=== PATIENT | female | born 1975 | race Caucasian/White ===

== ENCOUNTER 2023-01-17 13:37 | Emergency (ER) | payer BC, SELFPAY ==
[2023-01-17] VITALS (24 sets, daily range): BP systolic 135–159; BP diastolic 70–84; PULSE 48–66; RESP 12–22; TEMP 36.4; O2SAT 97–100; BMI 45.0
--- NOTE | 2023-01-17 13:53 | ECG_ITS ---
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
--- NOTE | 2023-01-17 13:53 | XR_ITS ---
[address] [address] Patient Name: JEREMÍAS LIM MRN: [id number] date: 1975 Sex: F Assigned Patient Location: ER Current Patient Location: ED.MAIN Accession/Order Number: [id number] Exam Date: 01/17/2023 14:38 Report Date: 01/17/2023 15:25 At the request of: KEYSHA JOHNSON Procedure: XR chest 1V EXAM: XR chest 1V INDICATION: chest pain. COMPARISON: None. TECHNIQUE: Single frontal view of the chest FINDINGS: Enlarged cardiac silhouette. No acute infiltrative process. No pleural effusion or pneumothorax. No acute osseous abnormality. XR/XR chest 1V IMPRESSION: 1. No acute cardiopulmonary process. 2. Cardiomegaly. Electronically authenticated by: KULDEEP DEVINE Date: 01/17/2023 15:25
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
[2023-01-17 14:13] LABS: Basophils Absolute Auto 0.1 10^3/uL (0.0-0.1); Basophils Percent Auto 0.7 % (0.2-2.0); Eosinophils Absolute Auto 0.3 10^3/uL (0.0-0.7); Eosinophils Percent Auto 3.3 % (0.9-7.0); Hematocrit 35.4 % (36.0-48.0); Hemoglobin 11.2 g/dL (12.0-16.0); Immature Granulocytes Abs Auto 0.03 10^3/uL (0.00-0.03); Immature Granulocytes Pct Auto 0.4 % (0.0-0.5); Lymphocytes Absolute Auto 2.3 10^3/uL (1.2-3.8); Lymphocytes Percent Auto 28.4 % (20.5-60.0); Mean Corpuscular HGB Conc 31.6 g/dL (29.9-35.2); Mean Corpuscular Hemoglobin 28.9 pg (26.7-34.0); Mean Corpuscular Volume 91.2 fL (81.0-99.0); Mean Platelet Volume 9.8 fL (9.5-13.5); Monocytes Absolute Auto 0.5 10^3/uL (0.3-0.8); Monocytes Percent Auto 6.1 % (1.7-12.0); Neutrophils Percent Auto 61.1 % (43.0-75.0); Platelet Count 284 10^3/uL (150-450); Red Blood Count 3.88 10^6/uL (4.20-5.40); White Blood Count 8.2 10^3/uL (4.0-11.0)
[2023-01-17] MEDS: KETOROLAC TROMETHAMINE 30 MG/ML VIAL IVP (14:14)
[2023-01-17] MEDS: 0.9 % SODIUM CHLORIDE 1,000 ML 1000 ML IV (14:14)
[2023-01-17 14:24] LABS: D Dimer 0.33 mg/L FEU (<=0.59)
[2023-01-17 14:27] LABS: Anion Gap 11.2; BUN Creatinine Ratio 11.5; Calcium 8.7 mg/dL (8.5-10.1); Carbon Dioxide 26.8 mmol/L (21.0-32.0); Chloride 104 mmol/L (98-107); Estimated GFR (African America >60 (>=60); Estimated GFR (Non-African Ame >60 (>=60); Glucose 94 mg/dL (74-106); Sodium 138 mmol/L (136-145); Troponin I High Sensitivity <4.0 pg/mL (4.0-51.3)
[2023-01-17] MEDS: DIAZEPAM 5 MG/ML - 2 ML INJ SYRINGE 2 MG IV (15:19)
[2023-01-17] MEDS: METHYLPREDNISOLONE SOD SUCC PF 125 MG/2 ML VIAL IVP (15:19)
== END 2023-01-17 16:37 | disposition home or self-care (01) ==
PROVIDERS: Emergency Provider Emergency Medicine
DX: R42 Dizziness and giddiness (principal); R07.89 Other chest pain
CPT/HCPCS: 36415; 71045; 80048; 84484; 85025; 85378; 93005; 96361; 96374; 96375; 99285; J2930

== ENCOUNTER 2023-01-23 18:06 | Emergency (ER) | payer BC, SELFPAY ==
[2023-01-23 18:17] VITALS: BP 141/100; PULSE 64; RESP 18; TEMP 36.6; O2SAT 96; BMI 33.7
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
[2023-01-23 20:28] VITALS: BP 153/77; PULSE 60; RESP 18; O2SAT 99
[2023-01-23] MEDS: LORAZEPAM 0.5 MG TABLET PO (20:47)
[2023-01-23] MEDS: PREDNISONE 20 MG TABLET 60 MG PO (20:47)
--- NOTE | 2023-01-23 21:33 | PC.NURSE ---
patient states after recieving the medication the pressure has lessened and she is beginning to feel a little better. physician aware
== END 2023-01-23 22:39 | disposition home or self-care (01) ==
PROVIDERS: Emergency Provider Internal Medicine
DX: R42 Dizziness and giddiness (principal); S06.0X0A Concussion without loss of consciousness, initial encounter; W17.89XA Other fall from one level to another, initial encounter
CPT/HCPCS: 70450; 72100; 99284

== ENCOUNTER 2024-12-08 07:31 | Outpatient (OUT) | payer BC, SELFPAY ==
--- NOTE | 2024-12-08 07:43 | MR_ITS ---
[address] [address] Patient Name: JEREMÍAS MCMANUS MRN: [id number] date: 1975 Sex: F Assigned Patient Location: MRI Current Patient Location: MRI Accession/Order Number: [id number] Exam Date: 12/08/2024 12:47 Report Date: 12/08/2024 13:10 At the request of: FRANSISCA GUALLPA DPM Procedure: MR ankle LT wo con MR ankle LT wo con 12/08/2024 8:48 AM SIGNS AND SYMPTOMS: ^Peroneal Tear, Ankle Instability after injury PROTOCOL: Multiplanar multisequence MR images of the left ankle without IV contrast COMPARISON: None FINDINGS: Alignment: Normal. Fluid: Tibiotalar: No joint effusion. Subtalar: No joint effusion. Medial: Medial malleolus: Normal. Tendons: Posterior tibial tendon: Intact. Flexor digitorum longus: Intact. Flexor hallucis longus: Intact. Ligaments: Deltoid ligament complex - superficial: Intact. Deltoid ligament complex - deep: Intact. Spring (plantar calcaneo-navicular) ligament: Intact. Lateral: Lateral malleolus: Intact. Retromalleolar groove: Normal. Tendons: Peroneus longus: There is thickening of the peroneus longus tendon with increased signal intensity suspicious for previously repaired tendon. The tendon is grossly intact.. Peroneus brevis: There is thickening of the peroneus brevis tendon with increased signal intensity suspicious for previously repaired tendon. The tendon is grossly intact.. Peroneal retinaculum: Grossly intact. There is soft tissue swelling along the lateral aspect of the peroneal retinaculum. Ligaments: Anterior inferior tibiofibular (syndesmosis): Intact. Posterior inferior tibiofibular (syndesmosis): Intact. Anterior talofibular ligament: Intact. Calcaneofibular ligament: Intact. Posterior talofibular ligament: Intact. Posterior: Posterior talus: Normal. Intermalleolar ligament: Intact. Achilles tendon: Intact. Plantar fascia: Intact. Anterior: Tendons: Anterior tibial tendon: Intact. Extensor hallucis longus: Intact. Extensor digitorum longus: Intact. Tibiotalar joint: Intact. Subtalar joint: Intact. Bones (other than subarticular marrow): Normal. Muscles: Normal Tarsal tunnel: Normal. Sinus tarsi: Normal. MR/MR ankle LT wo con IMPRESSION: There is thickening of the peroneus longus tendon with increased signal intensity suspicious for previously repaired tendon. The tendon is grossly intact.. There is thickening of the peroneus brevis tendon with increased signal intensity suspicious for previously repaired tendon. The tendon is grossly intact. There is soft tissue swelling along the lateral aspect of the peroneal retinaculum. Impression dictated by: Waylon Sullivan M.D. 12/08/2024 1:10 PM Dictation Location: [place] [address] Electronically authenticated by: [id number] Y Date: 12/08/2024 13:10
== END 2024-12-08 07:32 | disposition home or self-care (01) ==
LOC: MRI 07:33
PROVIDERS: Visit Provider Podiatrist Foot & Ankle Surgery
DX: S86.312A Strain of muscle(s) and tendon(s) of peroneal muscle group at lower leg level, left leg, initial encounter (principal); M25.372 Other instability, left ankle
CPT/HCPCS: 73721